=== PATIENT | male | born 1995 | race African-American/Black ===

== ENCOUNTER 2023-06-26 15:36 | Emergency (ER) | payer MEDICAID ==
[~2023-06-26] VITALS: Ht 188 cm; Wt 86.0 kg
[2023-06-26 15:46] VITALS: TEMP 98.4; O2SAT 100
[2023-06-26 16:00] VITALS: BP 130/78; PULSE 70; RESP 18
[2023-06-26] MEDS: HYDROCODONE/ACETAMINOPHEN 5/325MG TABLET PO ONE (16:00)
[2023-06-26] MEDS: BACITRACIN ZINC OINT UDPKT TOP ONE (16:00)
[2023-06-26] MEDS: LIDOCAINE HCL/PF 1% 10 MG/ML 5ML VIAL INFIL ONE (16:00)
[2023-06-26] MEDS: IBUPROFEN 600MG TABLET PO ONE (16:00)
[2023-06-26] MEDS ORDERED: TETANUS, DIPHTHERIA, PERTUSSIS VAC/PF 0.5ML (>10YR OLD) IM ONE (16:00)
[2023-06-26] MEDS: CEFTRIAXONE SODIUM 1G VIAL IM ONE (16:15)
[2023-06-26] MEDS ORDERED: IBUP-2028 MT (17:42)
[2023-06-26] MEDS ORDERED: CEPH500C2 MT (17:42)
[2023-06-26] MEDS: TETANUS, DIPHTHERIA, PERTUSSIS VAC/PF 0.5ML (>10YR OLD) IM ONE (17:45)
== END 2023-06-26 18:15 | disposition home or self-care (01) ==
LOC: ER 15:36
DX: S61.411A Laceration without foreign body of right hand, initial encounter (principal); S61.431A Puncture wound without foreign body of right hand, initial encounter; X58.XXXA Exposure to other specified factors, initial encounter; Y93.89 Activity, other specified; Y92.89 Other specified places as the place of occurrence of the external cause; Y99.8 Other external cause status
CPT/HCPCS: 99284; 73130; 90715; 12001; 90471; 96372; J0696; J3490

== ENCOUNTER 2024-12-23 03:16 | Inpatient (IN) | payer MEDICAID ==
[~2024-12-23] VITALS: Ht 188 cm; Wt 81.6 kg
[~2024-12-23 03:16] MED LIST: CEPH500C2 MT; IBUP-2028 MT
[2024-12-23 03:22] VITALS: O2SAT 100
[2024-12-23 04:16] LABS: BASOPHILS % 1.0 % (0.0-2.0); EOSINOPHILS % 2.9 % (0.0-5.0); HEMATOCRIT. 39.1 % (42.0-52.0); HEMOGLOBIN. 13.0 g/dL (14.0-18.0); LYMPHOCYTES % 47.9 % (20.0-50.0); MEAN PLATELET VOLUME 7.3 fl (7.4-10.4); MONOCYTES % 13.2 % (2.0-8.0); NEUTROPHILS % 35.0 % (40.0-76.0); PLATELET 290 x1000/uL (130-400); RED BLOOD CELL COUNT 4.80 mill/uL (4.7-6.1); RED CELL DISTRIBUTION WIDTH 13.0 % (11.6-14.6)
[2024-12-23 04:25] LABS: CREATININE 1.2 mg/dL (0.6-1.3); UREA NITROGEN BLOOD 9 mg/dL (9-23)
[2024-12-23 04:27] LABS: ASPARTATE AMINOTRANSFERASE 33 IU/L (<34); BILIRUBIN DIRECT 0.2 mg/dL (<=3.0); BILIRUBIN TOTAL 0.6 mg/dL (0.1-1.0); PROTEIN TOTAL 6.7 g/dL (6.0-8.3); TROPONIN I HIGH SENSITIVITY < 4 ng/L (3.0-53)
[2024-12-23 04:28] LABS: INR 1.0
[2024-12-23] MEDS: KETOROLAC 15MG/ML VIAL IV ONE (05:11)
[2024-12-23 08:00] VITALS: BP 106/71; PULSE 69; RESP 18; TEMP 36.8; O2SAT 99
[2024-12-23] MEDS ORDERED: ACETAMINOPHEN 325MG TABLET PO PRN ×2 (08:45)
[2024-12-23] MEDS ORDERED: DIPHENHYDRAMINE 50MG/ML VIAL IV PRN (08:45)
[2024-12-23] MEDS ORDERED: MAGNESIUM/ALUMINUM HYDROXIDE/SIMETHICONE 30ML UDC PO PRN (08:45)
[2024-12-23] MEDS ORDERED: ONDANSETRON HCL 4MG/2ML INJ IV PRN (08:45)
[2024-12-23] MEDS ORDERED: ZOLPIDEM TARTRATE 5MG TABLET PO PRN (08:45)
[2024-12-23] MEDS ORDERED: GUAIFENESIN 200MG/10ML SUGAR FREE UDC PO PRN (08:45)
[2024-12-23 09:18] VITALS: BP 106/71; PULSE 69; RESP 18; TEMP 36.8072
[2024-12-23 12:00] VITALS: BP 159/56; PULSE 73; RESP 19; TEMP 36.8; O2SAT 100
[2024-12-23] MEDS: MVI, ADULT NO.1 10 ML, FOLIC ACID 1 MG, THIAMINE HCL 100 MG in SODIUM CHLORIDE 0.9% 1,0... IV ONE (14:25)
[2024-12-23 16:00] VITALS: BP 110/64; PULSE 67; RESP 19; TEMP 36.6; O2SAT 100
[2024-12-23 20:00] VITALS: BP 109/58; PULSE 67; RESP 18; TEMP 35.6; O2SAT 100
[2024-12-23] MEDS: PANTOPRAZOLE 40MG DR TABLET PO SCH (21:00)
[2024-12-24] VITALS: BP 105/62; PULSE 67; RESP 18; TEMP 36.5; O2SAT 100
[2024-12-24 04:00] VITALS: BP 110/68; PULSE 68; RESP 18; TEMP 36.2; O2SAT 100
[2024-12-24 08:00] VITALS: BP 121/64; PULSE 85; RESP 18; TEMP 36.6; O2SAT 95
[2024-12-24] MEDS: KETOROLAC 30MG/ML VIAL IV PRN (09:48)
[2024-12-24 12:03] VITALS: BP 121/64; PULSE 85; RESP 18; TEMP 97.9
[2024-12-24 13:09] LABS: *AMPHETAMINES SCREEN URINE PRESUMPTIVE POSITIVE (NEGATIVE); *BARBITURATES SCREEN URINE NEGATIVE (NEGATIVE); *BENZODIAZEPINES SCREEN URINE NEGATIVE (NEGATIVE); *COCAINE SCREEN URINE NEGATIVE (NEGATIVE); CANNABINOID URINE SCREEN NEGATIVE (NEGATIVE); ECSTASY MDMA SCREEN URINE CONF.TEST INDICATED (NEGATIVE); METHADONE URINE SCREEN NEGATIVE (NEGATIVE); OPIATES URINE SCREEN NEGATIVE (NEGATIVE); PHENCYCLIDINE URINE SCREEN NEGATIVE (NEGATIVE)
== END 2024-12-24 14:45 | disposition home or self-care (01) | DRG 203 ==
LOC: ER 03:29 → 8WST 05:08 → EDBEDREQTM 05:12 → EDBEDREQ 05:12 → ENRESERV 07:10
PROVIDERS: ADMIT Internal Medicine; ATTEND Internal Medicine
DX: R07.89 Other chest pain (principal); K21.9 Gastro-esophageal reflux disease without esophagitis
CPT/HCPCS: 36415; 71045; 74176; 80048; 80076; 80305; 84484; 85025; 93005; 99285; A4606; J1885; J3411; J3490; J7030